=== PATIENT | male | born 1995 | race Caucasian/White ===

== ENCOUNTER → 2016-08-26 | Outpatient (CLI) | payer BC ==
[2016-08-26 15:37] LABS: BASOPHILS # (AUTO) 0.04 10*3/UL; BASOPHILS % (AUTO) 0.4 % (0-1); EOSINOPHILS # (AUTO) 0.48 10*3/UL; EOSINOPHILS % (AUTO) 4.7 % (0-8); HEMATOCRIT 45.6 % (42.0-52.0); HEMOGLOBIN 15.3 g/dL (14.0-18.0); LYMPHOCYTES # (AUTO) 3.56 10*3/uL; MEAN CORPUSCULAR HEMOGLOBIN 30.6 PG (27-31); MEAN CORPUSCULAR HGB CONC 33.6 g/dL (33-37); MEAN PLATELET VOLUME 10.4 FL (7.4-12.2); MONOCYTES # (AUTO) 0.97 10*3/UL (0.3-0.8); MONOCYTES % (AUTO) 9.6 % (5-15); NEUTROPHILS # (AUTO) 5.03 10*3/UL; NEUTROPHILS % (AUTO) 49.8 % (50-80)
[2016-08-26 15:45] LABS: BLOOD UREA NITROGEN 11 mg/dL (7-22); CALCIUM 9.4 mg/dL (8.7-10.7); EST GLOMERULAR FILTRATION > 60 (>60 ml/min/1.73m(2)); HDL CHOLESTEROL 45 mg/dL (40-150); SERUM ALBUMIN 4.7 g/dL (3.5-4.8); SERUM CHOLESTEROL 153 mg/dL (120-200)
[2016-08-26 15:49] LABS: PLATELET MORPHOLOGY COMMENT NORMAL MORPHOLOGY (NORM); RBC MORPHOLOGY COMMENT NORMAL MORPHOLOGY (NORM); WBC MORPHOLOGY COMMENT NORMAL MORPHOLOGY (NORM)
--- NOTE | 2016-08-26 17:37 | DI ---
RIGHT SHOULDER, 08/26/2016 2:52 PM: Clinical History: Acute right shoulder pain. Previous Exam: None at this facility. 3 views are submitted. There is no acute soft tissue, osseous, or joint abnormality. The visualized p ortions of the right lung are normal. Reading: Normal right shoulder exam.
--- NOTE | 2016-08-26 17:41 | DI ---
CERVICAL SPINE SERIES, 08/26/2016 2:52 PM: Clinical History: Neck pain. Previous Exam: None at this facility. A routine upright views are submitted. The vertebral bodies are normal in height and size. The disc s paces are normal. Posterior alignment and lateral masses are normal. C1 articulates normally with C2 and the occiput. Prevertebral soft tissue planes are normal. There is prominent dextroscoliosis of th e thoracic spine. Readin. Normal cervical spine series. 2. There is prominent dextroscoliosis of the upper thoracic spine.
== END ==
LOC: RAD 15:10
PROVIDERS: ATTEND Family Medicine
DX: Z00.01 Encounter for general adult medical examination with abnormal findings (principal); M54.2 Cervicalgia; M25.511 Pain in right shoulder; F17.210 Nicotine dependence, cigarettes, uncomplicated
CPT/HCPCS: 36415; 72040; 73030; 80053; 80061; 82306; 84443; 85025